=== PATIENT | female | born 1955 | race Caucasian/White ===

== ENCOUNTER 2022-02-26 14:43 | Inpatient (IN) ==
[2022-02-26] MEDS ORDERED: GLUCAGON 1 MG VIAL IM PRN ×2 (17:44→19:12)
[2022-02-26] MEDS ORDERED: ONDANSETRON 4 MG/2 ML VIAL IV PRN (17:48)
[2022-02-26] MEDS ORDERED: DEXTROSE 10% 250 ML BAG IV PRN (17:49)
[2022-02-26] MEDS ORDERED: BUDESONIDE/FORMOTEROL 80-4.5 INHALER 6.9 GM INH PRN (18:29)
[2022-02-26] MEDS ORDERED: LORATADINE 10 MG TABLET PO PRN (18:29)
[2022-02-26] MEDS ORDERED: CETIRIZINE 10 MG TABLET PO PRN (18:29)
[2022-02-26] MEDS ORDERED: ALBUTEROL 2.5 MG/3 ML NEB RESP TX PRN (18:44)
[2022-02-26 18:46] LABS: Basophils # 0.1 10*3/uL (0.0-0.2); Basophils % 0.5 % (0.0-0.8); Eosinophils # 0.1 10*3/uL (0.0-0.87); Hematocrit 44.4 VOL% (35.7-47.0); Hemoglobin 14.3 GM/DL (12.0-16.0); Immature Granulocytes % 0.2 %; Immature Granulocytes Absolute 0.02 #; Lymphocytes # 2.9 10*3/uL (1.4-4.0); Lymphocytes % 31.4 % (21.3-54.2); Mean Corpuscular HGB Conc 32.2 GM/DL (32-36); Mean Corpuscular Volume 94.9 FL (87-102); Mean Platelet Volume 9.1 FL (9.6-12.0); Monocytes # 0.6 10*3/uL (0.11-0.8); Neutrophils % 60.9 % (38.7-73.9); Platelet Count 324 T/CUMM (130-400); Red Blood Count 4.68 MC/CUMM (3.8-5.5); Red Cell Distribution Width 14.6 % (9.3-17.3); White Blood Count 9.2 T/CUMM (4-12)
[2022-02-26 18:56] LABS: PT Patient Result 10.9 SECS (10.5-12.0); Partial Thromboplastin Time 28.9 SECS (23.8-32.1)
[2022-02-26 19:05] LABS: Albumin 3.5 G/DL (3.4-5.0); Bilirubin,Total 0.7 MG/DL (0.20-1.00); Calcium 9.4 MG/DL (8.5-10.1); Osmolality,Calculated 284.7 MOS/KG (273-304); Potassium 3.9 MMOL/L (3.5-5.1); Total Protein 7.7 G/DL (6.4-8.2)
[2022-02-26] MEDS ORDERED: INSULIN GLARGINE 100 UNIT/ML SUBCUT SCH (21:00)
[2022-02-26] MEDS: MONTELUKAST 10 MG TABLET PO SCH (21:40)
[2022-02-26] MEDS: HydrOXYzine PAMOATE 25 MG CAPSULE PO SCH (21:40)
[2022-02-26] MEDS: traZODone 50 MG TABLET PO SCH (21:40)
[2022-02-26] MEDS: ROSUVASTATIN 20 MG TABLET PO SCH (21:40)
[2022-02-26] MEDS: VENLAFAXINE XR 75 MG CAPSULE PO SCH (21:40)
[2022-02-26] MEDS: busPIRone 5 MG TABLET PO SCH (21:40)
[2022-02-26] MEDS: INSULIN REGULAR 100 UNIT/ML SUBCUT SCH (21:41)
[2022-02-26] MEDS: KETOCONAZOLE 2% CREAM 30 GM TUBE TOP SCH (21:41)
[2022-02-26 22:30] LABS: Bacteria,Urine Occasional /HPF (Few); Mucus,Urine Occasional /LPF (Occasional); RBC,Urine <1 /HPF (0-4); Squamous Epithelial Cell,Urine Occasional /HPF (0-10)
[2022-02-26 22:31] LABS: Urine Appearance Clear (Clear); Urine Color Yellow (Yellow)
[2022-02-26 22:32] LABS: Bilirubin,Urine Negative (Negative); Blood, Urine Small mg/dL (Negative); Glucose,Urine (UA) >=1000 mg/dL (Negative); Ketones,Urine Negative (Negative); Nitrite,Urine Negative (Negative); Protein,Urine Negative (Negative); Urine Specific Gravity <= 1.005 (1.001-1.035); Urine pH 5.5 (4.5-8.0)
[2022-02-27 04:53] LABS: Basophils % 0.5 % (0.0-0.8); Eosinophils # 0.2 10*3/uL (0.0-0.87); Eosinophils % 1.9 % (0.00-10.9); Hematocrit 45.2 VOL% (35.7-47.0); Hemoglobin 14.3 GM/DL (12.0-16.0); Immature Granulocytes % 0.3 %; Immature Granulocytes Absolute 0.02 #; Lymphocytes # 4.2 10*3/uL (1.4-4.0); Lymphocytes % 53.1 % (21.3-54.2); Mean Corpuscular HGB Conc 31.6 GM/DL (32-36); Mean Corpuscular Volume 96.2 FL (87-102); Mean Platelet Volume 9.3 FL (9.6-12.0); Monocytes # 0.7 10*3/uL (0.11-0.8); Monocytes % 8.4 % (1.7-12.7); Neutrophils % 35.8 % (38.7-73.9); Platelet Count 321 T/CUMM (130-400); Red Cell Distribution Width 14.4 % (9.3-17.3); White Blood Count 7.9 T/CUMM (4-12)
[2022-02-27 05:13] LABS: Albumin 3.5 G/DL (3.4-5.0); Bilirubin,Total 0.5 MG/DL (0.20-1.00); Osmolality,Calculated 288.3 MOS/KG (273-304); Potassium 4.8 MMOL/L (3.5-5.1); Risk Ratio 2.94; Total Protein 7.5 G/DL (6.4-8.2); VLDL Cholesterol 18.4 MG/DL
[2022-02-27 05:22] LABS: Eosinophils 4 % (0-10); Lymphocytes 53 % (20-55); Platelet Estimate Adequate; Total Cells Counted 100
[2022-02-27] MEDS: LACTATED RINGERS 1,000 ML IV SCH ×2 (08:30→17:14)
[2022-02-27] MEDS: INSULIN REGULAR 100 UNIT/ML SUBCUT SCH ×2 (08:31→17:15)
[2022-02-27] MEDS: PRASTERONE 50 MG PO SCH (09:53)
[2022-02-27] MEDS: VENLAFAXINE XR 75 MG CAPSULE PO SCH ×2 (09:53→21:20)
[2022-02-27] MEDS: PANTOPRAZOLE 40 MG TABLET PO SCH (09:53)
[2022-02-27] MEDS: FLUCONAZOLE 100 MG TABLET PO SCH (09:53)
[2022-02-27] MEDS: DOCUSATE SODIUM 100 MG CAPSULE PO SCH (09:53)
[2022-02-27] MEDS: CHOLECALCIFEROL 5,000 UNIT TABLET PO SCH (09:54)
[2022-02-27] MEDS: ZINC GLUCONATE 50 MG TABLET PO SCH (09:54)
[2022-02-27] MEDS: KETOCONAZOLE 2% CREAM 30 GM TUBE TOP SCH ×2 (09:54→21:22)
[2022-02-27] MEDS ORDERED: fentaNYL 100 MCG/2 ML VIAL ONE (11:02)
[2022-02-27] MEDS ORDERED: MIDAZOLAM 2 MG/2 ML VIAL ONE (11:02)
[2022-02-27] MEDS ORDERED: propofoL 200 MG/20 ML VIAL IV ONE (11:05)
[2022-02-27] MEDS ORDERED: DEXMEDETOMIDINE 200 MCG/2 ML VIAL ONE (11:17)
[2022-02-27] MEDS ORDERED: DEXAMETHASONE 4 MG/1 ML VIAL ONE (11:20)
[2022-02-27] MEDS ORDERED: LIDOCAINE 1% 5 ML VIAL ONE (11:20)
[2022-02-27] MEDS ORDERED: ROPIVACAINE 0.5% 30 ML VIAL ONE (11:20)
[2022-02-27] MEDS ORDERED: ETOMIDATE 40 MG/20 ML VIAL IV ONE (13:00)
[2022-02-27] MEDS ORDERED: LIDOCAINE 2% 5 ML VIAL ONE (13:00)
[2022-02-27] MEDS ORDERED: ROCURONIUM 50 MG/5 ML VIAL IV ONE (13:00)
[2022-02-27] MEDS ORDERED: ceFAZolin 1,000 MG VIAL ONE (13:12)
[2022-02-27] MEDS ORDERED: ONDANSETRON 4 MG/2 ML VIAL ONE (13:17)
[2022-02-27] MEDS ORDERED: ACETAMINOPHEN INJ 1,000 MG/100 ML VIAL IV ONE (13:30)
[2022-02-27] MEDS ORDERED: BACITRACIN OINT 0.9 GM PACK TOP ONE (13:45)
[2022-02-27] MEDS ORDERED: GLYCOPYRROLATE 0.4 MG/2 ML VIAL ONE (13:51)
[2022-02-27] MEDS ORDERED: NEOSTIGMINE 10 MG/10 ML VIAL ONE (13:51)
[2022-02-27] MEDS ORDERED: MAGNESIUM HYDROXIDE SUSP 30 ML UDCUP PO PRN (14:11)
[2022-02-27] MEDS: busPIRone 5 MG TABLET PO SCH (21:20)
[2022-02-27] MEDS: MONTELUKAST 10 MG TABLET PO SCH (21:20)
[2022-02-27] MEDS: traZODone 50 MG TABLET PO SCH (21:20)
[2022-02-27] MEDS: HydrOXYzine PAMOATE 25 MG CAPSULE PO SCH (21:20)
[2022-02-27] MEDS: ROSUVASTATIN 20 MG TABLET PO SCH (21:20)
[2022-02-28 05:05] LABS: Basophils % 0.3 % (0.0-0.8); Eosinophils % 0.2 % (0.00-10.9); Hematocrit 42.3 VOL% (35.7-47.0); Hemoglobin 13.8 GM/DL (12.0-16.0); Immature Granulocytes % 0.6 %; Immature Granulocytes Absolute 0.07 #; Lymphocytes # 2.6 10*3/uL (1.4-4.0); Lymphocytes % 20.4 % (21.3-54.2); Mean Corpuscular HGB Conc 32.6 GM/DL (32-36); Mean Corpuscular Volume 94.6 FL (87-102); Mean Platelet Volume 9.7 FL (9.6-12.0); Monocytes # 0.7 10*3/uL (0.11-0.8); Monocytes % 5.9 % (1.7-12.7); Neutrophils % 72.6 % (38.7-73.9); Platelet Count 294 T/CUMM (130-400); Red Blood Count 4.47 MC/CUMM (3.8-5.5); White Blood Count 12.5 T/CUMM (4-12)
[2022-02-28 05:19] LABS: Calcium 9.6 MG/DL (8.5-10.1); Osmolality,Calculated 281.8 MOS/KG (273-304); Potassium 4.2 MMOL/L (3.5-5.1)
[2022-02-28] MEDS ORDERED: DEXTROSE 10% 250 ML BAG IV PRN (05:56)
[2022-02-28] MEDS ORDERED: GLUCAGON 1 MG VIAL IM PRN (05:56)
[2022-02-28] MEDS: INSULIN REGULAR 100 UNIT/ML SUBCUT SCH ×2 (08:45→16:58)
[2022-02-28] MEDS: ZINC GLUCONATE 50 MG TABLET PO SCH (08:45)
[2022-02-28] MEDS: DOCUSATE SODIUM 100 MG CAPSULE PO SCH (08:45)
[2022-02-28] MEDS: VENLAFAXINE XR 75 MG CAPSULE PO SCH ×2 (08:45→20:51)
[2022-02-28] MEDS: FLUCONAZOLE 100 MG TABLET PO SCH (08:45)
[2022-02-28] MEDS: CHOLECALCIFEROL 5,000 UNIT TABLET PO SCH (08:45)
[2022-02-28] MEDS: PANTOPRAZOLE 40 MG TABLET PO SCH (08:45)
[2022-02-28] MEDS: KETOCONAZOLE 2% CREAM 30 GM TUBE TOP SCH ×2 (08:46→20:52)
[2022-02-28] MEDS: FONDAPARINUX 2.5 MG/0.5 ML SYRINGE SUBCUT SCH (08:46)
[2022-02-28] MEDS ORDERED: NON-FORMULARY MEDICATION (Liraglutide [Victoza 3-Pak] 0.6 mg/0.1 mL (18 mg/3 mL) Pen Injec SUBCUT SCH (09:00)
[2022-02-28] MEDS: PLECANATIDE 3 MG PO SCH (10:04)
[2022-02-28] MEDS: PRASTERONE 50 MG PO SCH (10:05)
[2022-02-28] MEDS: KETOROLAC 30 MG/1 ML VIAL IV PRN (19:19)
[2022-02-28] MEDS: busPIRone 5 MG TABLET PO SCH (20:51)
[2022-02-28] MEDS: HydrOXYzine PAMOATE 25 MG CAPSULE PO SCH (20:51)
[2022-02-28] MEDS: traZODone 50 MG TABLET PO SCH (20:51)
[2022-02-28] MEDS: MONTELUKAST 10 MG TABLET PO SCH (20:51)
[2022-02-28] MEDS: ROSUVASTATIN 20 MG TABLET PO SCH (20:51)
[2022-02-28] MEDS ORDERED: INSULIN GLARGINE 100 UNIT/ML SUBCUT SCH (21:00)
[2022-03-01] MEDS: INSULIN REGULAR 100 UNIT/ML SUBCUT SCH ×2 (08:25→16:14)
[2022-03-01] MEDS: CHOLECALCIFEROL 5,000 UNIT TABLET PO SCH (08:26)
[2022-03-01] MEDS: FLUCONAZOLE 100 MG TABLET PO SCH (08:26)
[2022-03-01] MEDS: DOCUSATE SODIUM 100 MG CAPSULE PO SCH (08:26)
[2022-03-01] MEDS: PANTOPRAZOLE 40 MG TABLET PO SCH (08:26)
[2022-03-01] MEDS: FONDAPARINUX 2.5 MG/0.5 ML SYRINGE SUBCUT SCH (08:26)
[2022-03-01] MEDS: ZINC GLUCONATE 50 MG TABLET PO SCH (08:26)
[2022-03-01] MEDS: VENLAFAXINE XR 75 MG CAPSULE PO SCH (08:27)
[2022-03-01] MEDS: KETOCONAZOLE 2% CREAM 30 GM TUBE TOP SCH (08:28)
[2022-03-01] MEDS: KETOROLAC 30 MG/1 ML VIAL IV PRN (09:30)
[2022-03-01] MEDS: PLECANATIDE 3 MG PO SCH (10:12)
[2022-03-01] MEDS: PRASTERONE 50 MG PO SCH (10:12)
[2022-03-01 16:33] VITALS: BP 130/67
== END 2022-03-01 17:22 | disposition swing bed (61) | DRG 517 ==
LOC: N.3E
PROVIDERS: ADMIT Orthopaedic Surgery; ATTEND Orthopaedic Surgery